=== PATIENT | male | born 1955 | race Two or more races ===

== ENCOUNTER 2016-09-19 20:04 | Emergency (ER) | payer OTHER ==
[2016-09-19 20:11] VITALS: BP 154/71; PULSE 78; RESP 18; TEMP 97.9; O2SAT 97
--- NOTE | 2016-09-19 20:49 | EDPHY ---
H & P Time Seen by Provider: 09/19/16 20:41 HPI/ROS: CHIEF COMPLAINT: Abrasions HISTORY OF PRESENT ILLNESS: The patient is a 61-year-old male presenting with multiple abrasions and mild back pain after a mechanical fall 1 hour ago. The patient was hiking with his . He lost his balance and fell backwards. The patient has multiple abrasions to his left anterior arm. He complains of mild low back pain and some abrasion to his low back as well. The patient did not hit his head. He has mild neck stiffness. REVIEW OF SYSTEMS: A comprehensive 10 point review of systems is otherwise negative aside from elements mentioned in the history of present illness. Past Medical/Surgical History: Denies. Social History: . Here with son at bedside. Smoking Status: Never smoked Physical Exam: General Appearance: Alert, pleasant Head: Atraumatic Eyes: No conjunctival erythema, PERRLA, EOMI ENT, Mouth: no oral trauma, no bony tenderness Neck: Non-tender, full range of motion without pain Respiratory: No chest wall tenderness, lungs clear bilaterally Cardiovascular: Regular rate and rhythm Abdomen: Abdomen is soft and non tender Skin: Abrasions to left anterior forearm, left lateral leg, and right low back Back: No midline T/L/S tenderness Extremities: No extremity tenderness or deformity, full range of motion without pain Neurological: A&Ox3, normal motor function, normal sensory exam, cranial nerves intact Psychiatric: Mood and affect normal Constitutional: Initial Vital Signs Temperature (C) 36.6 C 09/19/16 20:09 Heart Rate 78 09/19/16 20:09 Respiratory Rate 18 09/19/16 20:09 Blood Pressure 154/71 H 09/19/16 20:09 O2 Sat (%) 97 09/19/16 20:09 O2 Delivery Mode Room Air Allergies/Adverse Reactions: No Known Allergies Allergy (Unverified 09/19/16 20:54) Home Medications: Medication Instructions Recorded Aspirin 81 mg PO 09/19/16 Atorvastatin Calcium [Lipitor 10 10 mg PO DAILY 09/19/16 mg (*)] Metformin HCl [Fortamet] 850 mg PO TID 09/19/16 Multivitamin [One Daily Essential] 1 each PO 09/19/16 Perinodopril 5 mg PO DAILY 09/19/16 glipiZIDE [Glipizide] 10 mg PO 09/19/16 Medical Decision Making ED Course/Re-evaluation: This pt presents with multiple abrasions. No evidence of hemorrhage or fracture. Ibuprofen instructions given. Differential Diagnosis: includes though not limited to ICH, fracture, hemorrhage, PTX. - Data Points Medications Given: Discontinued Medications Ibuprofen (Motrin) 600 mg PO EDNOW ONE Stop: 09/19/16 20:51 Last Admin: 09/19/16 20:57 Dose: 600 mg Tetracaine/Epinephrine/Lidocaine (Let Gel Topical) 1 ea TP EDNOW ONE Stop: 09/19/16 20:55 Last Admin: 09/19/16 20:57 Dose: 1 ea Departure - Departure Disposition: Home, Routine, Self-Care Clinical Impression: Multiple abrasions Condition: Good Instructions: Abrasion (ED) Additional Instructions: Take 600mg Ibuprofen every 6-8 hours as needed for pain. Keep wounds clean. I recommend cleaning the wounds with soap and water. Referrals: XAVI NEWMAN [Other] - As per Instructions Report Scribed for: Isela Olivares Report Scribed by: Lesley Church Date of Report: 09/19/16 Time of Report: 20:47 Physician Review and Approval Statement: 09/19/16 20:47 Portions of this note were transcribed by a medical receptionist medical assistant. I personally performed the history, physical exam, and medical decision-making; and confirmed the accuracy of the information in the transcribed note.
[2016-09-19] MEDS ORDERED: IBUPROFEN 600 MG TAB PO ONE (20:50)
[2016-09-19] MEDS ORDERED: LET GEL TOPICAL 1 EA SYR TP ONE (20:54)
== END 2016-09-19 22:11 | disposition home or self-care (01) ==
DX: S30.810A Abrasion of lower back and pelvis, initial encounter (principal); S50.812A Abrasion of left forearm, initial encounter; S80.812A Abrasion, left lower leg, initial encounter; Z79.82 Long term (current) use of aspirin; W18.39XA Other fall on same level, initial encounter; Y93.01 Activity, walking, marching and hiking